=== PATIENT | male | born 1985 | race Two or more races ===

== ENCOUNTER 2023-02-27 14:36 | Emergency (ER) | payer OTHER ==
[~2023-02-27] VITALS: Ht 167.6 cm; Wt 106.6 kg
[2023-02-27] MEDS ORDERED: ACETAMINOPHEN ES 500 MG TABLET PO ONE (15:30)
[2023-02-27] MEDS ORDERED: BENZONATATE 100 MG CAPSULE PO PRN (15:30)
[2023-02-27] MEDS ORDERED: BENZ-13 PO ×2 (15:47→15:56)
[2023-02-27] MEDS ORDERED: BENZONATATE 100 MG CAPSULE PO ONE (15:48)
[2023-02-27] MEDS ORDERED: ACETAMINOPHEN ES 500 MG TABLET ONE (15:49)
[2023-02-27 16:11] VITALS: BP 140/94; TEMP 98.4; O2SAT 97
== END 2023-02-27 16:11 | disposition home or self-care (01) ==
LOC: ER 14:40
DX: R05.9 Cough, unspecified (principal)
CPT/HCPCS: 71045-TC

== ENCOUNTER 2023-03-22 16:14 | Emergency (ER) | payer OTHER ==
[~2023-03-22] VITALS: Ht 167.6 cm; Wt 102.1 kg
[~2023-03-22 16:14] MED LIST: BENZ-13 PO
[2023-03-22 16:39] VITALS: BP 122/96; TEMP 98.8
[2023-03-22] MEDS ORDERED: FAMO20TA8 PO (17:10)
[2023-03-22 17:17] VITALS: O2SAT 98
== END 2023-03-22 17:17 | disposition home or self-care (01) ==
LOC: ER 16:26
DX: R05.9 Cough, unspecified (principal)

== ENCOUNTER 2023-04-25 10:29 | Emergency (ER) | payer OTHER ==
[~2023-04-25] VITALS: Ht 167.6 cm; Wt 118.8 kg
[~2023-04-25 10:29] MED LIST changes: +FAMO20TA8 PO
[2023-04-25 11:53] LABS: BASOPHILS # (AUTO) 0.1 K/uL (0.0-0.2); BASOPHILS % (AUTO) 1.2 % (0.0-2.0); EOSINOPHILS # (AUTO) 0.2 K/uL (0.0-0.7); EOSINOPHILS % (AUTO) 2.6 % (0.0-6.0); HEMATOCRIT 47 % (39-51); HEMOGLOBIN 15.7 g/dL (13.5-17.5); LYMPHOCYTES # (AUTO) 1.9 K/uL (0.8-4.8); LYMPHOCYTES % (AUTO) 27.1 % (20.0-44.0); MEAN CORPUSCULAR HEMOGLOBIN 30 PG (26.0-33.0); MEAN CORPUSCULAR HGB CONC 34 g/dl (31.0-36.0); MEAN CORPUSCULAR VOLUME 90 fL (80-96); MONOCYTES # (AUTO) 0.8 K/uL (0.1-1.30); MONOCYTES % (AUTO) 11.7 % (2.0-12.0); NEUTROPHILS % (AUTO) 57.4 % (43.0-81.0); PLATELET COUNT (AUTO) 207 K/uL (150-450); RED BLOOD CELL COUNT(AUTO) 5.19 MIL/uL (4.5-6.0); RED CELL DISTRIBUTION WIDTH 13.9 % (11.5-15.0); WHITE BLOOD COUNT (AUTO) 6.9 K/uL (4.3-11.0)
[2023-04-25 12:14] LABS: ALANINE AMINOTRANSFERASE 96 U/L (12-78); ALBUMIN 3.4 g/dL (3.4-5.0); ALKALINE PHOSPHATASE 87 U/L (46-116); ASPARTATE AMINOTRANSFERASE 41 U/L (15-37); BILIRUBIN,DIRECT 0.1 mg/dL (0.0-0.2); BILIRUBIN,TOTAL 0.5 mg/dL (0.2-1.0); NT-PRO BNP 53 pg/mL (0-125); TOTAL PROTEIN, SERUM 7.1 g/dL (6.4-8.2)
[2023-04-25] MEDS ORDERED: IBUP-1955 PO (12:30)
[2023-04-25] MEDS ORDERED: BENZ-13 PO (12:30)
[2023-04-25 12:33] LABS: CALCIUM, SERUM 8.9 mg/dL (8.5-10.1); CREATININE 0.8 mg/dL (0.6-1.3); POTASSIUM 4.1 mmol/L (3.5-5.1)
[2023-04-25 14:54] VITALS: BP 134/82; TEMP 98.2; O2SAT 97
== END 2023-04-25 14:55 | disposition home or self-care (01) ==
LOC: ER 10:36
DX: R07.89 Other chest pain (principal); R05.3 Chronic cough; G89.29 Other chronic pain; Z20.822 Contact with and (suspected) exposure to COVID-19
CPT/HCPCS: 99285; 71045; 87426; 93005; 87804 ×2; 85025; 80048; 80076; 36415; 84484 ×2; 83880; C9803

== ENCOUNTER 2023-11-27 19:03 | Emergency (ER) | payer OTHER ==
[~2023-11-27] VITALS: Ht 167.6 cm; Wt 108.9 kg
[~2023-11-27 19:03] MED LIST changes: +IBUP-1955 PO
[2023-11-27 19:13] VITALS: BP 133/78; TEMP 97.5
[2023-11-27] MEDS ORDERED: ONDANSETRON HCL/PF 4 MG/2 ML VIAL ONE (19:44)
[2023-11-27] MEDS ORDERED: MORPHINE SULFATE INJ 4 MG/ML DISP.SYRIN ONE (19:45)
[2023-11-27 19:46] LABS: BASOPHILS # (AUTO) 0.1 K/uL (0.0-0.2); BASOPHILS % (AUTO) 0.5 % (0.0-2.0); EOSINOPHILS # (AUTO) 0.2 K/uL (0.0-0.7); EOSINOPHILS % (AUTO) 1.5 % (0.0-6.0); HEMATOCRIT 46 % (39-51); HEMOGLOBIN 15.5 g/dL (13.5-17.5); LYMPHOCYTES % (AUTO) 17.8 % (20.0-44.0); MEAN CORPUSCULAR HEMOGLOBIN 29 PG (26.0-33.0); MEAN CORPUSCULAR HGB CONC 34 g/dl (31.0-36.0); MEAN CORPUSCULAR VOLUME 86 fL (80-96); MONOCYTES # (AUTO) 1.3 K/uL (0.1-1.30); MONOCYTES % (AUTO) 11.5 % (2.0-12.0); NEUTROPHILS # (AUTO) 7.7 K/uL (1.8-8.9); NEUTROPHILS % (AUTO) 68.7 % (43.0-81.0); PLATELET COUNT (AUTO) 240 K/uL (150-450); RED BLOOD CELL COUNT(AUTO) 5.28 MIL/uL (4.5-6.0); RED CELL DISTRIBUTION WIDTH 13.8 % (11.5-15.0); WHITE BLOOD COUNT (AUTO) 11.2 K/uL (4.3-11.0)
[2023-11-27 19:50] LABS: APPEARANCE,URINE CLEAR (CLEAR); BILIRUBIN,URINE NEGATIVE (NEGATIVE); BLOOD, URINE NEGATIVE Ery/uL (NEGATIVE); COLOR,URINE YELLOW (YELLOW); KETONES,URINE TRACE mg/dL (NEGATIVE); LEUKOCYTE ESTERASE ,URINE NEGATIVE (NEGATIVE); NITRITE, URINE NEGATIVE (NEGATIVE); PH,URINE 8.5 (5.0-8.0); PROTEIN,URINE NEGATIVE (NEGATIVE); UGLUCOSE NEGATIVE (NEGATIVE)
[2023-11-27] MEDS: MORPHINE SULFATE INJ 2 MG/ML DISP.SYRIN IV ONE (19:50)
[2023-11-27] MEDS: ONDANSETRON HCL/PF 4 MG/2 ML VIAL IVP ONE (19:50)
[2023-11-27] MEDS: IV NS 0.9% 1,000 ML BAG IV ONE (19:50)
[2023-11-27 20:01] LABS: CALCIUM, SERUM 8.4 mg/dL (8.5-10.1); CREATININE 0.9 mg/dL (0.6-1.3); POTASSIUM 4.2 mmol/L (3.5-5.1)
[2023-11-27 20:06] LABS: ALBUMIN 2.9 g/dL (3.4-5.0); BILIRUBIN,DIRECT 0.1 mg/dL (0.0-0.2); BILIRUBIN,TOTAL 0.4 mg/dL (0.2-1.0); TOTAL PROTEIN, SERUM 6.9 g/dL (6.4-8.2)
[2023-11-27] MEDS ORDERED: LIDOCAINE VISCOUS 2% UD 15 ML UDC ONE (20:48)
[2023-11-27] MEDS ORDERED: MAG HYDROX/AL HYDROX/SIMETH 30 ML UDC ONE (20:48)
[2023-11-27 20:49] LABS: SPERM,URINE Few /HPF (None Seen)
[2023-11-27 20:51] LABS: RBC,URINE 0-2 /HPF (0-2)
[2023-11-27 20:52] LABS: ADD URINE CULTURE NO; BACTERIA,URINE Few /HPF (None Seen); MUCUS,URINE Moderate /LPF (None Seen); SQUAMOUS EPITHELIAL CELL,UR Rare /HPF (None Seen)
[2023-11-27] MEDS: LIDOCAINE VISCOUS 2% UD 15 ML UDC MM ONE (21:26)
[2023-11-27] MEDS: MAG HYDROX/AL HYDROX/SIMETH 30 ML UDC PO ONE (21:26)
[2023-11-27] MEDS ORDERED: SIME180C35 PO (22:59)
[2023-11-27] MEDS ORDERED: ACET-2605 PO (22:59)
[2023-11-27] MEDS ORDERED: TAMS-12 PO (22:59)
[2023-11-27] MEDS ORDERED: IBUP-1955 PO (22:59)
[2023-11-27] MEDS ORDERED: ONDA4TAB5 PO (23:01)
[2023-11-27 23:08] VITALS: O2SAT 95
== END 2023-11-27 23:08 | disposition home or self-care (01) ==
LOC: ER 19:09
DX: R10.84 Generalized abdominal pain (principal); R11.2 Nausea with vomiting, unspecified
CPT/HCPCS: 99285; 74176; 96374; 96361; 96375; 85025; 80048; 83690; 80076; 81001; 36415; J2270; J2405; A4223

== ENCOUNTER 2024-02-18 00:08 | Emergency (ER) | payer OTHER ==
[~2024-02-18] VITALS: Ht 167.6 cm; Wt 104.3 kg
[~2024-02-18 00:08] MED LIST changes: +ACET-2605 PO; +ONDA4TAB5 PO; +SIME180C35 PO; +TAMS-12 PO
[2024-02-18 01:08] VITALS: BP 139/94; TEMP 98.9; O2SAT 95
[2024-02-18] MEDS ORDERED: CIPR7.5D9 LEFT EAR (01:21)
[2024-02-18] MEDS ORDERED: KETOROLAC TROMETHAMINE INJ 30 MG/ML VIAL ONE (01:33)
[2024-02-18] MEDS: KETOROLAC TROMETHAMINE INJ 30 MG/ML VIAL IM ONE (01:35)
== END 2024-02-18 01:36 | disposition home or self-care (01) ==
LOC: ER 00:11
DX: H60.92 Unspecified otitis externa, left ear (principal); H61.22 Impacted cerumen, left ear; J45.909 Unspecified asthma, uncomplicated; Z87.39 Personal history of other diseases of the musculoskeletal system and connective tissue
CPT/HCPCS: 99283; 96372; J1885

== ENCOUNTER 2024-03-31 18:45 | Emergency (ER) | payer OTHER ==
[~2024-03-31 18:45] MED LIST changes: +CIPR7.5D9 LEFT EAR
[2024-04-01] MEDS ORDERED: CYCL10TA9 PO (09:58)
[2024-04-01] MEDS ORDERED: LIDO1ADH82 TP (09:58)
[2024-04-01] MEDS ORDERED: ACET500C4 PO (09:58)
[2024-04-01] MEDS ORDERED: IBUP-1490 PO (09:58)
== END 2024-03-31 22:52 | disposition left against medical advice (07) ==
LOC: ER 18:52
DX: M54.50 Low back pain, unspecified (principal); Z53.21 Procedure and treatment not carried out due to patient leaving prior to being seen by health care provider

== ENCOUNTER → 2024-04-01 | Emergency (ER) | payer OTHER ==
[~2024-04-01] VITALS: Ht 167.6 cm; Wt 104.3 kg
[~2024-04-01] MED LIST changes: +ACET500C4 PO; +ACETAMINOPHEN ES 500 MG TABLET ONE; +CYCL10TA9 PO; +CYCLOBENZAPRINE 10 MG TABLET ONE; +IBUP-1490 PO; +KETOROLAC TROMETHAMINE 15 MG/ML VIAL ONE; +LIDO1ADH82 TP; +LIDOCAINE 5% (PATCH) 1 EA PATCH TP ONE
[2024-04-01 09:29] VITALS: BP 148/87; TEMP 98.5
[2024-04-01] MEDS: KETOROLAC TROMETHAMINE 15 MG/ML VIAL IM ONE (10:15)
[2024-04-01] MEDS: CYCLOBENZAPRINE 10 MG TABLET PO ONE (10:15)
[2024-04-01] MEDS: LIDOCAINE 5% (PATCH) 1 EA PATCH TP SCH (10:15)
[2024-04-01] MEDS: ACETAMINOPHEN ES 500 MG TABLET PO ONE (10:15)
[2024-04-01 10:35] VITALS: O2SAT 98
== END | disposition home or self-care (01) ==
LOC: ER 09:21
DX: G89.29 Other chronic pain (principal); M54.59 Other low back pain; J45.909 Unspecified asthma, uncomplicated; Z87.39 Personal history of other diseases of the musculoskeletal system and connective tissue
CPT/HCPCS: 99284; 96372; J1885

== ENCOUNTER 2024-05-27 18:46 | Emergency (ER) | payer OTHER ==
[~2024-05-27] VITALS: Ht 167.6 cm; Wt 120.2 kg
[~2024-05-27 18:46] MED LIST changes: -ACETAMINOPHEN ES 500 MG TABLET ONE; -CYCLOBENZAPRINE 10 MG TABLET ONE; -KETOROLAC TROMETHAMINE 15 MG/ML VIAL ONE; -LIDOCAINE 5% (PATCH) 1 EA PATCH TP ONE
[2024-05-27] MEDS ORDERED: ACETAMINOPHEN ES 500 MG TABLET ONE (19:43)
[2024-05-27] MEDS ORDERED: IBUPROFEN 600 MG TABLET ONE (19:43)
[2024-05-27] MEDS: IBUPROFEN 600 MG TABLET PO ONE (19:48)
[2024-05-27] MEDS: ACETAMINOPHEN ES 500 MG TABLET PO ONE (19:48)
[2024-05-27] MEDS ORDERED: ACET325C7 PO (19:57)
[2024-05-27] MEDS ORDERED: IBUP-1955 PO (19:58)
[2024-05-27] MEDS ORDERED: GUAI1TBM19 PO (20:06)
[2024-05-27] MEDS ORDERED: ALBU8.5H8 INH (20:06)
[2024-05-27] MEDS ORDERED: BENZ-13 PO (20:06)
[2024-05-27 20:18] VITALS: BP 134/85; TEMP 98; O2SAT 96
== END 2024-05-27 20:18 | disposition home or self-care (01) ==
LOC: ER 18:47
DX: R07.89 Other chest pain (principal); F15.10 Other stimulant abuse, uncomplicated; F17.200 Nicotine dependence, unspecified, uncomplicated; J45.909 Unspecified asthma, uncomplicated
CPT/HCPCS: 71045-TC

== ENCOUNTER 2024-09-21 22:44 | Emergency (ER) | payer OTHER ==
[~2024-09-21 22:44] MED LIST changes: +ACET325C7 PO; +ALBU8.5H8 INH; +GUAI1TBM19 PO
== END 2024-09-22 00:28 | disposition left against medical advice (07) ==
LOC: ER 22:46
DX: T65.91XA Toxic effect of unspecified substance, accidental (unintentional), initial encounter (principal); Z53.21 Procedure and treatment not carried out due to patient leaving prior to being seen by health care provider; Y92.89 Other specified places as the place of occurrence of the external cause

== ENCOUNTER 2024-10-22 18:41 | Emergency (ER) | payer OTHER ==
[~2024-10-22] VITALS: Ht 172.7 cm; Wt 133.8 kg
[2024-10-22 20:03] VITALS: TEMP 99
[2024-10-22 20:40] LABS: BASOPHILS # (AUTO) 0.1 K/uL (0.0-0.2); BASOPHILS % (AUTO) 0.9 % (0.0-2.0); EOSINOPHILS # (AUTO) 0.2 K/uL (0.0-0.7); EOSINOPHILS % (AUTO) 1.4 % (0.0-6.0); HEMATOCRIT 47 % (39-51); HEMOGLOBIN 15.9 g/dL (13.5-17.5); LYMPHOCYTES # (AUTO) 2.8 K/uL (0.8-4.8); LYMPHOCYTES % (AUTO) 22.3 % (20.0-44.0); MEAN CORPUSCULAR HEMOGLOBIN 30 PG (26.0-33.0); MEAN CORPUSCULAR HGB CONC 34 g/dl (31.0-36.0); MEAN CORPUSCULAR VOLUME 88 fL (80-96); MONOCYTES # (AUTO) 1.1 K/uL (0.1-1.30); MONOCYTES % (AUTO) 8.3 % (2.0-12.0); NEUTROPHILS # (AUTO) 8.6 K/uL (1.8-8.9); NEUTROPHILS % (AUTO) 67.1 % (43.0-81.0); PLATELET COUNT (AUTO) 256 K/uL (150-450); RED BLOOD CELL COUNT(AUTO) 5.31 MIL/uL (4.5-6.0); WHITE BLOOD COUNT (AUTO) 12.7 K/uL (4.3-11.0)
[2024-10-22] MEDS: diphenhydrAMINE HCL 50 MG/ML VIAL IV ONE (20:40)
[2024-10-22] MEDS: IV NS 0.9% 1,000 ML BAG IV ONE (20:40)
[2024-10-22 20:59] LABS: ALBUMIN 3.6 g/dL (3.4-5.0); BILIRUBIN,DIRECT 0.1 mg/dL (0.0-0.2); BILIRUBIN,TOTAL 0.3 mg/dL (0.2-1.0); CALCIUM, SERUM 8.5 mg/dL (8.5-10.1); POTASSIUM 3.8 mmol/L (3.5-5.1); TOTAL PROTEIN, SERUM 7.7 g/dL (6.4-8.2)
[2024-10-22 21:08] LABS: AMPHETAMINE, URINE NEGATIVE (NEGATIVE); BARBITURATE, URINE NEGATIVE (NEGATIVE); BENZODIAZEPINE, URINE NEGATIVE (NEGATIVE); COCCAINE, URINE NEGATIVE (NEGATIVE); OPIATE, URINE NEGATIVE (NEGATIVE); PHENCYCLIDINE SCREEN,URINE NEGATIVE (NEGATIVE)
[2024-10-22 21:15] LABS: CANNABINOID, URINE POSITIVE (NEGATIVE)
[2024-10-22 21:25] LABS: APPEARANCE,URINE CLEAR (CLEAR); BILIRUBIN,URINE NEGATIVE (NEGATIVE); BLOOD, URINE TRACE-INTA Ery/uL (NEGATIVE); COLOR,URINE YELLOW (YELLOW); KETONES,URINE TRACE mg/dL (NEGATIVE); LEUKOCYTE ESTERASE ,URINE NEGATIVE (NEGATIVE); NITRITE, URINE NEGATIVE (NEGATIVE); PROTEIN,URINE TRACE mg/dl (NEGATIVE); UGLUCOSE NEGATIVE (NEGATIVE); UROBILINOGEN,URINE 0.2 EU/dL (0.2)
[2024-10-22 21:34] LABS: ADD URINE CULTURE NO; BACTERIA,URINE Few /HPF (None Seen); CALCIUM OXALATE CRYSTALS,UR Few /HPF (None Seen); RBC,URINE 0-2 /HPF (0-2); SQUAMOUS EPITHELIAL CELL,UR None Seen /HPF (None Seen); WBC,URINE 0-2 /HPF (0-3)
[2024-10-22] MEDS: KETOROLAC TROMETHAMINE INJ 30 MG/ML VIAL IV ONE (21:44)
[2024-10-22] MEDS ORDERED: FAMO20TA8 PO (21:51)
[2024-10-22] MEDS ORDERED: SIME180C35 PO (21:51)
[2024-10-22] MEDS ORDERED: GUAI1TBM19 PO (21:51)
[2024-10-22] MEDS ORDERED: ONDA4TAB5 PO (21:51)
[2024-10-22 22:18] VITALS: BP 151/87; O2SAT 96
== END 2024-10-22 22:18 | disposition home or self-care (01) ==
LOC: ER 18:45
DX: R10.13 Epigastric pain (principal); R11.2 Nausea with vomiting, unspecified; J45.909 Unspecified asthma, uncomplicated; Z79.899 Other long term (current) drug therapy
CPT/HCPCS: 99285; 96374; 76700; 96361; 96375; 85025; 80048; 83690; 80076; 36415; 80307; 81001; J1885; J1200; J7030